=== PATIENT | male | born 1965 | race Caucasian/White ===

== ENCOUNTER 2016-06-27 12:12 | Day surgery (SDC) | payer BC ==
[~2016-06-27] VITALS: Ht 182.9 cm; Wt 167.0 kg
[~2016-06-27 12:12] MED LIST: PERCOCET 10/1 TABLET PO; ZYRTEC10 M3 PO
[2016-06-27 13:16] VITALS: BP 166/103
[2016-06-28 03:17] VITALS: BP 135/80
[2016-06-28 04:00] VITALS: BP 135/80
[2016-06-28 07:41] VITALS: BP 153/81
[2016-06-28] MEDS ORDERED: PERCOCET 10/1 TABLET PO (08:51)
[2016-06-28] MEDS ORDERED: CYCLOBENZAPRINE10 MG PO (08:51)
[2016-06-28] MEDS ORDERED: BACTRIM,SEPT1 TABLET PO (09:01)
== END 2016-06-28 12:54 | disposition home or self-care (01) ==
LOC: SDC 12:12 → 2SOUTH 06-28 01:30 → 3EAST 06-28 04:43
DX: M54.16 Radiculopathy, lumbar region (principal); M51.26 Other intervertebral disc displacement, lumbar region; E66.01 Morbid (severe) obesity due to excess calories; Z68.43 Body mass index [BMI] 50.0-59.9, adult; G47.33 Obstructive sleep apnea (adult) (pediatric)
CPT/HCPCS: 72020; 76000; G0378; J0131; J0690; J1100; J1170; J2250; J2405; J2710; J2930; J3010; J3370; J3480; S0020